=== PATIENT | female | born 1980 | race Caucasian/White ===

== ENCOUNTER 2016-06-01 12:09 | Emergency (ER) | payer MEDICAID ==
[~2016-06-01] VITALS: Ht 154.9 cm; Wt 69.9 kg
[2016-06-01 12:10] VITALS: BP 114/82; PULSE 105; RESP 19; TEMP 97.5; O2SAT 100
--- NOTE | 2016-06-01 12:10 | NUR ---
Patient triaged and placed in waiting room. VSS and patient appears in no acute distress at this time. Accompanied by FAMILY, awaiting available bed, and MD notified of need for MSE.
--- NOTE | 2016-06-01 14:20 | NUR ---
BROUGHT BACK TO BED #8 VIA WHEELCHAIR, REPORT GIVEN TO JAYA
--- NOTE | 2016-06-01 14:20 | NUR ---
Pt report received from KATHYA Garduno. Pt states that she hit her Left ankle on a rack at work. Swelling and abrasion noted to lateral left ankle. No mariya deformity noted. Pt unable to bear wait on extremity.
--- NOTE | 2016-06-01 14:35 | NUR ---
Dr. Galdamez at bedside to assess pt.
[2016-06-01] MEDS ORDERED: HYDROcodone/ACETAMIN 10-325 MG TAB PO ONE (15:45)
[2016-06-01] MEDS ORDERED: DIPH-TET-PERTUS Vaccine 0.5 ML VIAL (ADACEL) I.M. ONE (15:45)
[2016-06-01 16:10] VITALS: BP 110/76; PULSE 86; RESP 20; TEMP 97.8; O2SAT 100
--- NOTE | 2016-06-01 16:10 | NUR ---
Patient given written and verbal discharge instructions and verbalizes understanding. ER MD discussed with patient the results and treatment provided. Patient in stable condition. ID arm band removed. Rx of [place] given. Patient educated on pain management and to follow up with PMD. Pain Scale 4/10, medicated prior to discharge. Opportunity for questions provided and answered.
--- NOTE | 2016-06-01 16:10 | NUR ---
Note undone in EDM - 06/01/16 at 1615 by [email or web address] Patient given written and verbal discharge instructions and verbalizes understanding. ER MD discussed with patient the results and treatment provided. Given copies of tests performed in ER. Patient in stable condition. ID arm band removed. Rx of [place] given. Patient educated on pain management and to follow up with PMD. Pain Scale 0/10. Opportunity for questions provided and answered.
== END 2016-06-01 16:10 | disposition home or self-care (01) ==
LOC: SED 12:09
DX: S93.402A Sprain of unspecified ligament of left ankle, initial encounter (principal); E11.9 Type 2 diabetes mellitus without complications; M25.521 Pain in right elbow; W22.8XXA Striking against or struck by other objects, initial encounter; Y93.89 Activity, other specified; Y92.89 Other specified places as the place of occurrence of the external cause; Y99.8 Other external cause status
CPT/HCPCS: 90715; 99284

== ENCOUNTER 2022-04-14 18:44 | Emergency (ER) | payer MEDICAID ==
[~2022-04-14] VITALS: Ht 154.9 cm; Wt 72.6 kg
[2022-04-14 19:30] VITALS: BP_SYST 119
[2022-04-14 21:07] LABS: BASOPHILS # (AUTO) 0.1 K/uL (0.0-0.2); BASOPHILS % (AUTO) 0.8 % (0.0-2.0); EOSINOPHILS # (AUTO) 0.1 K/uL (0.0-0.4); EOSINOPHILS % (AUTO) 2.1 % (0.0-4.0); HEMATOCRIT 31.7 % (36-48); HEMOGLOBIN 10.3 g/dL (12.0-16.0); LYMPHOCYTES # (AUTO) 2.1 K/uL (1.0-5.5); LYMPHOCYTES % (AUTO) 29.9 % (20.5-51.5); MEAN CORPUSCULAR HEMOGLOBIN 26 pg (27-31); MEAN CORPUSCULAR HGB CONC 33 % (32-36); MEAN CORPUSCULAR VOLUME 78 fL (79.0-98.0); MONOCYTES # (AUTO) 0.4 K/uL (0.0-1.0); MONOCYTES % (AUTO) 6.1 % (1.7-9.3); NEUTROPHILS # (AUTO) 4.3 K/uL (1.8-7.7); NEUTROPHILS % (AUTO) 61.1 % (40.0-70.0); PLATELET COUNT (AUTO) 440 K/uL (130-430); RED BLOOD CELL COUNT(AUTO) 4.06 MIL/uL (4.2-6.2); RED CELL DISTRIBUTION WIDTH 14.2 % (9.0-15.0); WHITE BLOOD COUNT (AUTO) 7.1 K/uL (4.8-10.8)
[2022-04-14 21:17] LABS: ANION GAP 9 (5-15); CALCIUM 8.7 mg/dL (8.4-11.0); CHLORIDE 102 mmol/L (98-107); GLUCOSE 214 mg/dL (70-99); UREA NITROGEN, BLOOD 15 mg/dL (8-21)
[2022-04-14 21:18] LABS: GFR AFRICAN AMERICAN 174 mL/min (>90)
[2022-04-14 21:21] LABS: ALANINE AMINOTRANSFERASE 27 U/L (12-78); ALBUMIN 3.2 g/dL (3.4-4.8); AMYLASE 52 U/L (0-100); ASPARTATE AMINOTRANSFERASE 12 U/L (10-37); C-REACTIVE PROTEIN QUANT 0.6 mg/dL (0-0.5); LIPASE 58 U/L (73-393); TOTAL BILIRUBIN 0.1 mg/dL (0.0-1.0)
[2022-04-14 21:26] LABS: ACETONE, SERUM NEGATIVE (NEGATIVE)
[2022-04-14 21:27] LABS: BILIRUBIN,URINE NEGATIVE (NEGATIVE); BLOOD, URINE NEGATIVE (NEGATIVE); CLARITY/URINE CLEAR (CLEAR); COLOR,URINE YELLOW (YELLOW); GLUCOSE,URINE NEGATIVE (NEGATIVE); KETONES,URINE TRACE (NEGATIVE); LEUKOCYTE ESTERASE ,URINE NEGATIVE (NEGATIVE); NITRITE, URINE NEGATIVE (NEGATIVE); PH,URINE 6.5 (5.0-8.0); PROTEIN URINE TRACE (NEGATIVE); UROBILINOGEN,URINE 0.2 (0.2-1.0)
[2022-04-14 21:36] LABS: BACTERIA,URINE FEW /HPF (None Seen); RBC,URINE 0-3 /HPF (0-3); WBC,URINE 0-3 /HPF (0-3)
[2022-04-14 21:37] LABS: MUCUS,URINE None Seen /LPF (None Seen)
[2022-04-14 22:10] VITALS: BP_SYST 121
== END 2022-04-14 22:10 | disposition home or self-care (01) ==
LOC: SED 18:44
DX: R10.32 Left lower quadrant pain (principal); E11.9 Type 2 diabetes mellitus without complications; Z79.899 Other long term (current) drug therapy
CPT/HCPCS: 36415; 76376; 80053; 81000; 82009; 82150; 83605; 83690; 84703; 85025; 86140; 99284